=== PATIENT | male | born 1965 ===

== ENCOUNTER → 2020-08-23 | Outpatient (REF) ==
--- NOTE | 2020-08-23 11:13 | REPPI ---
INDICATION: KNEE PAIN COMPARISON: None TECHNIQUE: Five views FINDINGS: There is minimal tricompartmental marginal osteophyte formation. The compartments are symmetric and well maintained. There is no fracture, dislocation, or subluxation. IMPRESSION: Minimal degenerative changes <Electronically signed by Howie Martinez > 08/23/20 110
== END ==
LOC: M PLAIMG 10:36
PROVIDERS: ATTEND Internal Medicine
DX: Z00.00 Encounter for general adult medical examination without abnormal findings (principal)

== ENCOUNTER → 2021-02-07 | Outpatient (REF) ==
--- NOTE | 2021-02-08 04:53 | REP ---
INDICATION: ARTHRITIS COMPARISON: None. TECHNIQUE: AP, lateral, bilateral oblique and sunrise views. FINDINGS: The osseous structures and joint spaces are intact and relatively age-appropriate. [place] view suggests subtle spurring along the patellar margin which should be correlated with patient's symptoms. No further significant arthritic degenerative changes are identified. There is no evidence for acute fracture or dislocation. No joint effusion is appreciated. Surrounding soft tissues are unremarkable. No subcutaneous emphysema or radiodense foreign body. IMPRESSION: Mild degenerative changes suggested involving the patella. Otherwise age-appropriate examination. <Electronically signed by Alphonse Soliman > 02/08/21 [id number]
== END ==
LOC: M PLAIMG 12:21
PROVIDERS: ATTEND Internal Medicine
DX: M17.11 Unilateral primary osteoarthritis, right knee (principal)